=== PATIENT | male | born 1970 | race Caucasian/White ===

== ENCOUNTER 2025-02-05 08:05 | Outpatient (CLI) | payer BC, SELFPAY | END 2025-02-05 08:06 | disposition home or self-care (01) | LOC: NFLDREF 02-10 12:04 | PROVIDERS: PCP Family Medicine; Referring Provider Family Medicine; Visit Provider Family Medicine | DX: R11.0 Nausea (principal); Z13.6 Encounter for screening for cardiovascular disorders; Z12.5 Encounter for screening for malignant neoplasm of prostate | CPT/HCPCS: 80053; 80061; G0103 ==

== ENCOUNTER 2025-02-09 10:00 | Outpatient (CLI) | payer BC, SELFPAY ==
--- NOTE | 2025-02-09 12:05 | P.ANES_ITS ---
Anesthesia Charges Start Date/Time Anesthesia Start Date: 02/09/25 Anesthesia Start Time: 10:21 Stop Date/Time Anesthesia Stop Date: 02/09/25 Anesthesia Stop Time: 10:39 Coding CPT Codes CPT Codes: ANES LWR INTST SCR COLSC - 91810 ([id number]) P3 - PATIENT W/SEVERE SYS DISEASE, QK - LEASE EXAMINER 2-4 CNCRNT ANES PROC, QX - DRIVER SUPERVISOR SVC W/ MD MED DIRECTION
--- NOTE | 2025-02-09 12:05 | W.ANESCHARGE ---
Anesthesia Charges Start Date/Time Anesthesia Start Date: 02/09/25 Anesthesia Start Time: 10:21 Stop Date/Time Anesthesia Stop Date: 02/09/25 Anesthesia Stop Time: 10:39 Coding CPT Codes CPT Codes: ANES LWR INTST SCR COLSC - [id number] ([id number]) P3 - PATIENT W/SEVERE SYS DISEASE, QK - IMPROVEMENT SPEC 2-4 CNCRNT ANES PROC, QX - INDUSTRIAL GAS SERVICER HELPER SVC W/ MD MED DIRECTION
--- NOTE | 2025-02-10 07:12 | P.ANES_ITS ---
Anesthesia Charges Start Date/Time Anesthesia Start Date: 02/09/25 Anesthesia Start Time: 10:21 Stop Date/Time Anesthesia Stop Date: 02/09/25 Anesthesia Stop Time: 10:39 Coding CPT Codes CPT Codes: ANES LWR INTST SCR COLSC - [id number] ([id number]) P3 - PATIENT W/SEVERE SYS DISEASE, QK - CHILI POWDER MIXER 2-4 CNCRNT ANES PROC, QX - WIRE BENDER SVC W/ MD MED DIRECTION
--- NOTE | 2025-02-10 07:12 | W.ANESCHARGE ---
Anesthesia Charges Start Date/Time Anesthesia Start Date: 02/09/25 Anesthesia Start Time: 10:21 Stop Date/Time Anesthesia Stop Date: 02/09/25 Anesthesia Stop Time: 10:39 Coding CPT Codes CPT Codes: ANES LWR INTST SCR COLSC - [id number] ([id number]) P3 - PATIENT W/SEVERE SYS DISEASE, QK - HYDRAULIC PRESS SERVICER 2-4 CNCRNT ANES PROC, QX - CONFERENCE CONCIERGE SVC W/ MD MED DIRECTION
== END 2025-02-09 10:01 | disposition home or self-care (01) ==
LOC: OP CLINIC 10:00
PROVIDERS: PCP Family Medicine; Visit Provider Internal Medicine
DX: Z12.11 Encounter for screening for malignant neoplasm of colon (principal)
CPT/HCPCS: 00812; 45378; J2704